=== PATIENT | male | born 1985 | race Asian ===

== ENCOUNTER 2019-03-20 17:55 | Emergency (ER) | payer OTHER ==
[~2019-03-20] VITALS: Ht 167.6 cm; Wt 77.1 kg
[2019-03-20 18:27] VITALS: BP 123/61
[2019-03-20] MEDS ORDERED: NAPROXEN 500 MG TABLET PO STA (18:27)
[2019-03-20] MEDS ORDERED: diazePAM 5 MG TABLET PO ONE (18:30)
[2019-03-20] MEDS ORDERED: HYDROcodone/APAP 5/325MG 1 TAB TABLET PO ONE (18:30)
[2019-03-20] MEDS ORDERED: predniSONE 10 MG TABLET PO ONE (18:30)
[2019-03-20] MEDS ORDERED: METH4TAB2 PO (18:38)
[2019-03-20] MEDS ORDERED: CYCL10TA2 PO (18:38)
[2019-03-20] MEDS ORDERED: HYDR-3164 PO (18:38)
[2019-03-20] MEDS ORDERED: DICL50TA2 PO (18:38)
--- NOTE | 2019-03-20 18:39 | PHYS DOC ---
Past Medical History Past Medical History: No Pertinent History Past Surgical History: No Surgical History Alcohol Use: Occasionally Drug Use: None Adult General Chief Complaint Chief Complaint: LOWER BACK PAIN OR INJURY HPI HPI Patient is a 34 year old male who presents to the ED today complaining of 10 out of 10 generalized low back pain that began 2 days ago after crouching for long time doing a youth program activity, patient denies any injury. Denies any pain radiating to bilateral lower extremities. Denies any loss of bowel/bladder function. Denies any numbness or tingling to bilateral lower extremities. Review of Systems Review of Systems Constitutional: Denies fever or chills [] GI: Denies abdominal pain, nausea, vomiting, bloody stools or diarrhea [] : Denies dysuria or hematuria [] Musculoskeletal: Reports low back pain Integument: Denies rash or skin lesions [] Neurologic: Denies headache, focal weakness or sensory changes [] All other systems were reviewed and found to be within normal limits, except as documented in this note. Current Medications Current Medications Current Medications Medications (Trade) Dose Ordered Sig/Risa Start Time Stop Time Status Last Admin Dose Admin Acetaminophen/ Hydrocodone Bitart (Lortab 5/325) 2 tab 1X ONCE 03/20/19 18:30 03/20/19 18:37 DC Diazepam (Valium) 5 mg 1X ONCE 03/20/19 18:30 03/20/19 18:37 DC Naproxen (Naprosyn) 500 mg 1X STAT 03/20/19 18:27 03/20/19 18:37 DC Prednisone (Prednisone) 50 mg 1X ONCE 03/20/19 18:30 03/20/19 18:37 DC Allergies Allergies Allergies Coded Allergies Type Severity Reaction Last Updated Verified No Known Drug Allergies 03/20/19 No Physical Exam Physical Exam Constitutional: Well developed, well nourished, no acute distress, non-toxic appearance. [] Skin: Warm, dry, no erythema, no rash. [] Back: Diffuse paraspinal muscle tenderness bilateral lumbar spine, no midline lumbar spine tenderness, no CVA tenderness. [] Extremities: No tenderness, no cyanosis, no clubbing, ROM intact, no edema. [] Neurologic: Alert and oriented X 3, normal motor function, normal sensory function, no focal deficits noted. [] Psychologic: Affect normal, judgement normal, mood normal. [] Current Patient Data Vital Signs Vital Signs Date Time Temp Pulse Resp B/P (MAP) Pulse Ox O2 Delivery O2 Flow Rate FiO2 03/20/19 18:27 98.7 62 16 123/61 (81) 97 Room Air 98.7 EKG EKG [] Radiology/Procedures Radiology/Procedures [] Course & Med Decision Making Course & Med Decision Making Pertinent Labs and Imaging studies reviewed. (See chart for details) This is a 34-year-old male patient presented to the ED today with low back pain, no known injury. No cauda equina syndrome symptoms. Discharged to home with some pain relievers. Follow-up with PCP in 1-2 weeks as needed. Dragon Disclaimer Dragon Disclaimer This electronic medical record was generated, in whole or in part, using a voice recognition dictation system. Departure Departure Impression: Primary Impression: Back pain Disposition: HOME, SELF-CARE Condition: STABLE Referrals: NO PCP (PCP) follow up with your doctor in one week Patient Instructions: Back Pain, Adult, [id number] Additional Instructions: You were seen for back pain. Please apply heat to your low back Please take the prescribed medications as ordered Please follow-up with your doctor in 1-2 weeks Scripts Diclofenac Potassium (DICLOFENAC POTASSIUM) 50 Mg Tablet 1 TAB PO BID, #20 TAB 1 Refill Prov: CHICO MANTILLA APRN 03/20/19 Cyclobenzaprine Hcl (CYCLOBENZAPRINE HCL) 10 Mg Tablet 1 TAB PO TID, #30 TAB Prov: CHICO MANTILLA APRN 03/20/19 Methylprednisolone (MEDROL) 4 Mg Tab.ds.pk 1 PKG PO UD, #1 PKG Prov: CHICO MANTLILA APRN 03/20/19 Hydrocodone/Apap 5-325 (NORCO 5-325 TABLET) 1 Each Tablet 1 TAB PO Q6HRS, #12 TAB Prov: CHICO MANTILLA APRN 03/20/19 Problem Qualifiers Primary Impression: Back pain Back pain location: low back pain Chronicity: acute Back pain laterality: bilateral Sciatica presence: without sciatica Qualified Codes: M54.5 - Low back pain CHICO MANTILLA APRN Mar 20, 2019 18:38
== END 2019-03-20 18:51 | disposition home or self-care (01) ==
LOC: ER 17:55
DX: M54.5 Low back pain (principal)
CPT/HCPCS: 99284; J7512